=== PATIENT | female | born 1980 | race African-American/Black ===

== ENCOUNTER 2025-06-11 09:59 | Outpatient (CLI) | payer OTHER, SELFPAY ==
--- NOTE | ~2025-06-11 | US_ITS ---
EXAMINATION: US pelvic complete, 06/11/2025 10:02 NEUROLOGY SPECIALIST HISTORY: Abn uterine bleeding Comparison: None Technique: Sin-scale and color Doppler images were obtained. Findings: Uterus: Uterus anteverted 10.6 x 2.9 x 6.1 cm. . Endometrium 4 mm. Right Ovary:Right ovary 2.7 x 1.8 x 3 cm, no adnexal mass, normal flow. Left Ovary: Left ovary 2.6 x 1.5 x 2.2 cm, no adnexal mass, normal flow. Free Fluid: None Impression: No acute abnormality. Reviewed, dictated and finalized at location P. OLOGY SPECIALIST Impression: No acute abnormality.
== END 2025-06-11 10:00 | disposition home or self-care (01) ==
LOC: MICIMG 10:01
DX: N93.8 Other specified abnormal uterine and vaginal bleeding (principal)
CPT/HCPCS: 76856